=== PATIENT | female | born 1965 | race Caucasian/White ===

== ENCOUNTER 2017-03-26 10:34 | Outpatient (CLI) | payer OTHER ==
--- NOTE | 2017-03-29 10:45 | OP Clinic Progress Note ---
Dear Dr. Matias: REASON FOR VISIT: I had the pleasure of seeing Marsha Vicente in follow up. She continues to have pain in her left wrist, as well as some tenderness in her feet and index fingers. She has noted some mild improvement on Plaquenil but still requires ibuprofen. PAST MEDICAL AND OBSTETRICAL HISTORY: 1. Headaches. 2. Seven pregnancies and 3 miscarriages. SOCIAL HISTORY: Patient is . No smoking. No drinking. FAMILY HISTORY: Sister has systemic lupus. REVIEW OF SYSTEMS: No fevers, chills, or sweats. She does have fatigue. PHYSICAL EXAMINATION: GENERAL: She looks well. VITAL SIGNS: Vital signs are stable. Height: 5 feet 6 inches. Weight: 131. T: 97.5, R: 20, heart rate 80, BP: 128/60. JOINTS: She has got some MTP tenderness. The left wrist is tender but no overt synovitis. Joints of hands, PIPs and MCPs are tender but no overt synovitis. DIAGNOSTIC STUDIES: She brings in her x-rays which I personally reviewed. She has clear-cut erosions of the MTP joints of her feet, both right and left. She has some periarticular osteopenia of her hands at the MCP joints but no definite erosions. The carpal bones seem intact. We did some further testing. Her PATT came back positive. Her rheumatoid factor , again, came back positive at 11. Her CCP-antibodies came back positive at over 340 units. She was also found to have a positive anti-Beta-2 glycoprotein 1 IgG of 26. IMPRESSION: 1. Seropositive rheumatoid arthritis, erosive x-rays, Stage 2. 2. Antiphospholipid antibody syndrome. PLAN: 1. I will repeat her studies when I see her in a month for confirmation. 2. I am instituting aspirin 81 mg daily, as well as methotrexate 7.5 mg weekly. I understand she is already taking folate supplementation. 3. She will bring in the when I next see her in 4 weeks. Thank you very much for the opportunity to take care of your patient. Best regards, cc: Dr. Brown Matias Enclosure: [facility] MTDD
== END 2017-03-26 10:35 ==
LOC: RHEU 10:34
PROVIDERS: ATTEND Internal Medicine
DX: M05.9 Rheumatoid arthritis with rheumatoid factor, unspecified (principal); D68.61 Antiphospholipid syndrome
CPT/HCPCS: 99213; 99214

== ENCOUNTER 2017-04-23 13:25 | Outpatient (CLI) | payer OTHER ==
--- NOTE | 2017-04-28 14:45 | OP Clinic Progress Note ---
Dear Dr. Matias: REASON FOR VISIT: I had the pleasure of seeing Marsha Vicente a new patient in follow up. She has tolerated methotrexate well and she has noted maybe some improvement, although she has 15 minutes of morning stiffness. Most of her pain is in her feet. Her hands are improved. PAST MEDICAL HISTORY: Her past medical history remains unchanged with: 1. Headaches. 2. Seven pregnancies. 3. Three miscarriages. Social history, family history are unchanged. Her sister has lupus. REVIEW OF SYSTEMS: No fevers, chills, sweats, chest pain, shortness of breath, cough, wheezing, nausea, or vomiting. No mouth sores. PHYSICAL EXAMINATION: GENERAL: She looks well. VITAL SIGNS: Height: 5 feet 6 inches. Weight: 130 pounds. T: 97, R: 20, heart rate 70, BP: 115/69. HEENT: Sclerae are anicteric. Conjunctivae are pink. No stomatitis or glossitis. LUNGS: Clear. HEART: Regular rhythm. ABDOMEN: Soft. VASCULAR: Shows no edema or cyanosis. PERIPHERAL JOINTS: A little tenderness at the MCPs, but no overt synovitis. No ulnar deviation. Wrists, elbows, and shoulders are unremarkable. MTPs are exquisitely tender, ankles less so. Achilles tendon is unremarkable. Knees and elbows are unremarkable. IMPRESSION: 1. Seropositive rheumatoid arthritis, improving. 2. Antiphospholipid antibody syndrome. PLAN: 1. I am bumping up her methotrexate to 6 tablets weekly. 2. Continue folate supplementation. 3. I am repeating her antiphospholipid screen to have her confirm or refute that diagnosis. 4. She will get a CBC, CMP, and a sedimentation rate as part of monitoring methotrexate toxicity. 5. I will see her back in 2 months. Thank you very much for the opportunity to take care of your patients. Best regards, cc: Dr. Brown GREEN
== END 2017-04-23 13:30 ==
LOC: RHEU 13:25
PROVIDERS: ATTEND Internal Medicine
DX: M06.09 Rheumatoid arthritis without rheumatoid factor, multiple sites (principal); D68.61 Antiphospholipid syndrome
CPT/HCPCS: 36415; 99213; 99214

== ENCOUNTER 2017-06-21 09:33 | Outpatient (CLI) | payer OTHER ==
[2017-06-21 09:53] LABS: BASOPHILS % 0.7 (0.0-1.5); EOSINOPHILS % 2.8 % (0.0-6.8); MEAN CORPUSCULAR VOLUME 99.8 fl (80.0-100.0); MONOCYTES % 7.1 % (0.0-11.0); NEUTROPHILS # 1.9 # k/uL (1.4-7.7)
[2017-06-21 16:30] LABS: TOTAL PROTEIN 7.6 g/dL (6.0-8.5)
== END 2017-06-21 09:34 ==
LOC: LAB 09:33
PROVIDERS: ATTEND Internal Medicine
DX: M05.79 Rheumatoid arthritis with rheumatoid factor of multiple sites without organ or systems involvement (principal); Z79.899 Other long term (current) drug therapy
CPT/HCPCS: 36415; 80053; 85025; 85651

== ENCOUNTER 2017-07-23 12:17 | Outpatient (CLI) | payer OTHER ==
--- NOTE | 2017-07-29 08:09 | OP Clinic Progress Note ---
Dear Dr. Matias: REASON FOR VISIT: I had the pleasure of seeing Marsha Vicente in follow up. She is doing quite well with no joint swelling, warmth, tenderness, morning stiffness, or pain. PAST MEDICAL HISTORY: 1. Headaches. 2. Three miscarriages. Social and family history is unchanged. REVIEW OF SYSTEMS: She has no fevers, chills, or sweats. No mouth sores. No chest pain, shortness of breath, cough, or wheezing. No rashes, numbness or tingling of her extremities. PHYSICAL EXAMINATION: VITAL SIGNS: Height: 5 feet 6 inches. Weight: 129 pounds. T: 98.9, R: 20, heart rate 85, BP: 119/65. HEENT: Sclerae are anicteric. Conjunctivae are pink. No stomatitis or glossitis. No parotid swelling. NECK: No thyroid enlargement. LUNGS: Clear with no crackles or wheezing. HEART: Regular rate and rhythm. Normal S1 and S2. ABDOMEN: Soft. No organomegaly. VASCULAR: No edema or cyanosis. PERIPHERAL JOINTS: No tenderness or swelling at the DIPs, PIPs, MCPs, wrists, elbows, shoulders, AC/SC, TMJ joints, hips, knees, ankles, and feet. LABORATORIES: Her last labs on June 21 reflected a slightly depressed white count of 3.10, hemoglobin 12.7, sedimentation rate was 23, AST and ALT were 21 and 14, respectively. IMPRESSION: Seropositive rheumatoid arthritis, doing well. PLAN: 1. She is to continue methotrexate 6 tablets weekly, Plaquenil 200 mg twice a day, and folic acid supplementation. 2. I repeated her phospholipid antibodies and they were negative. Thus, the patient does not have antiphospholipid antibody syndrome. 3. She will get labs done in [place] in the next few weeks. 4. I will see her back in 3 months. Thank you very much for the opportunity to take care of your patients. Best regards, cc: Dr. Brown GREEN
== END 2017-07-23 15:00 ==
LOC: RHEU 12:17
PROVIDERS: ATTEND Internal Medicine
DX: M05.9 Rheumatoid arthritis with rheumatoid factor, unspecified (principal)
CPT/HCPCS: 99213; 99214

== ENCOUNTER 2017-10-29 10:44 | Outpatient (CLI) | payer OTHER ==
--- NOTE | 2017-10-29 14:02 | OP Clinic Progress Note ---
REASON FOR VISIT: Marsha Vicente returns for follow up of seropositive rheumatoid arthritis of multiple sites doing quite well with no joint swelling, warmth, tenderness, morning stiffness, or pain, except for maybe her right index finger occasionally gets a little stuck. She has had no deformities. Her level of activity is intact. PAST MEDICAL HISTORY: 1. Headaches. 2. Three miscarriages. SOCIAL AND FAMILY HISTORY: Unremarkable and unchanged. REVIEW OF SYSTEMS: She has had no fevers, chills, sweats, chest pain, shortness of breath, cough, wheezing, nausea, vomiting, or diarrhea. PHYSICAL EXAMINATION: GENERAL: She looks well. VITAL SIGNS: Height: 5 feet 6 inches. Weight: 129. T: 97.9, R: 20, heart rate 82, BP: 115/74. HEENT: Sclerae are anicteric. Conjunctivae are pink. No stomatitis or glossitis. LUNGS: Clear bilaterally with no crackles or wheezing. HEART: Regular rate and rhythm. ABDOMEN: Soft and nontender. VASCULAR: No edema or cyanosis. PERIPHERAL JOINTS: No synovitis at the DIPs, PIPs, MCPs, wrists, elbows, shoulders, hips, knees, ankles, and feet. LABORATORY: Her last labs from September 22 were reviewed. AST and ALT were 17 and 15, respectively. White count 3.74, hemoglobin 38.3, platelets were normal. Sedimentation rate was 9. IMPRESSION AND PLAN: Seropositive rheumatoid arthritis, doing well. Thank you very much. cc: Dr. Brown GREEN
== END 2017-10-29 10:45 ==
LOC: RHEU 10:44
PROVIDERS: ATTEND Internal Medicine
DX: M05.9 Rheumatoid arthritis with rheumatoid factor, unspecified (principal)
CPT/HCPCS: 99213; 99214